=== PATIENT | female | born 1980 ===

== ENCOUNTER 2021-08-02 15:00 | Outpatient (CLI) | payer OTHER | END 2021-08-02 16:25 | disposition home or self-care (01) | LOC: PRENATAL 15:00 | PROVIDERS: ATTEND Obstetrics & Gynecology Maternal & Fetal Medicine | DX: Z36.89 Encounter for other specified antenatal screening (principal); O36.80X1 Pregnancy with inconclusive fetal viability, fetus 1; O09.511 Supervision of elderly primigravida, first trimester; Z3A.13 13 weeks gestation of pregnancy ==

== ENCOUNTER 2021-09-14 14:47 | Outpatient (CLI) | payer OTHER | END 2021-09-14 16:52 | disposition home or self-care (01) | LOC: PRENATAL 14:47 | PROVIDERS: ATTEND Obstetrics & Gynecology Maternal & Fetal Medicine | DX: O35.0XX0 Maternal care for (suspected) central nervous system malformation in fetus, not applicable or unspecified (principal); O35.3XX0 Maternal care for (suspected) damage to fetus from viral disease in mother, not applicable or unspecified; O09.529 Supervision of elderly multigravida, unspecified trimester; O34.219 Maternal care for unspecified type scar from previous cesarean delivery ==

== ENCOUNTER 2021-12-07 14:47 | Outpatient (CLI) | payer OTHER | END 2021-12-07 15:52 | disposition home or self-care (01) | LOC: PRENATAL 14:47 | PROVIDERS: ATTEND Obstetrics & Gynecology Maternal & Fetal Medicine | DX: O26.849 Uterine size-date discrepancy, unspecified trimester (principal); Z3A.32 32 weeks gestation of pregnancy; O09.529 Supervision of elderly multigravida, unspecified trimester; O34.219 Maternal care for unspecified type scar from previous cesarean delivery ==

== ENCOUNTER 2022-01-15 07:30 | Inpatient (IN) | payer OTHER ==
[~2022-01-15] VITALS: Ht 157.5 cm; Wt 3.6 kg
[2022-01-15] MEDS ORDERED: PRENAT PO (08:49)
[2022-01-15] MEDS ORDERED: AMPICILLIN SOD500 MG PO (08:50)
[2022-01-31] MEDS ORDERED: PRENATAL + DHA1 EAC1 PO (14:16)
[2022-02-03] MEDS ORDERED: IBUPROFEN800 MG PO (08:28)
== END 2022-02-03 15:50 | disposition home or self-care (01) | DRG 785 ==
LOC: OB/GYN 01-26 07:30 → O/R 01-31 06:00 → OB/GYN 01-31 07:30
PROVIDERS: ADMIT Specialist; ATTEND Specialist
PROC: 0UB70ZZ Excision of Bilateral Fallopian Tubes, Open Approach (ICD-10-PCS; 2022-01-31)
PROC: 4A1HXFZ Monitoring of Products of Conception, Cardiac Rhythm, External Approach (ICD-10-PCS; 2022-01-31)
PROC: 10D00Z1 Extraction of Products of Conception, Low, Open Approach (ICD-10-PCS; principal; 2022-01-31 12:45)
DX: O34.211 Maternal care for low transverse scar from previous cesarean delivery (principal); Z37.0 Single live birth; Z30.2 Encounter for sterilization; Z3A.39 39 weeks gestation of pregnancy